=== PATIENT | male | born 1980 | race Caucasian/White ===

== ENCOUNTER 2017-11-02 14:28 | Emergency (ER) | payer OTHER ==
[~2017-11-02] VITALS: Ht 182.9 cm; Wt 97.5 kg
[~2017-11-02 14:28] MED LIST: PEPCID40 MG PO; ZOFRAN4 MG PO
[2017-11-02] MEDS ORDERED: ZANTAC150 M3 (14:30)
== END 2017-11-02 20:04 | disposition home or self-care (01) ==
LOC: ER 14:28
DX: M54.5 Low back pain (principal)